=== PATIENT | female | born 1960 | race Caucasian/White ===

== ENCOUNTER 2019-05-13 14:37 | Emergency (ER) | payer OTHER ==
[~2019-05-13] VITALS: Ht 157.5 cm; Wt 62.1 kg
--- NOTE | 2019-05-13 15:08 | NUR ---
Mary lopez in ED - 05/13/19 at 1520 by JEREMIE Patient discharged to home in stable conditon. Written and verbal after care instructions given to patient and adult son. Patient and family verbalized understanding & compliance of instructions.
--- NOTE | 2019-05-13 15:16 | NUR ---
Patient discharged to home in stable conditon with brisk steady gait. Written and verbal after care instructions given to patient and adult son. Patient and family verbalized understanding of instructions.
[2019-05-13] MEDS ORDERED: ONDA8TAB12 PO (15:19)
== END 2019-05-13 15:18 | disposition home or self-care (01) ==
LOC: ER 14:37
DX: B02.9 Zoster without complications (principal)
CPT/HCPCS: A4663

== ENCOUNTER 2019-06-05 20:50 | Emergency (ER) | payer OTHER ==
[~2019-06-05] VITALS: Ht 157.5 cm; Wt 63.5 kg
[~2019-06-05 20:50] MED LIST: ONDA8TAB12 PO
--- NOTE | 2019-06-05 21:00 | NUR ---
Patient BIB SON from home for c/o nausea x3 days. Came in for symtoms not resolving.
[2019-06-05] MEDS ORDERED: METOCLOPRAMIDE HCL 10 MG/2 ML VIAL IM ONE (21:15)
[2019-06-05] MEDS ORDERED: BENZTROPINE MESYLATE 2 MG/2 ML AMPUL IM ONE (21:15)
[2019-06-05] MEDS ORDERED: METOCLOPRAMIDE HCL 10 MG/2 ML VIAL ONE (21:25)
[2019-06-05] MEDS ORDERED: BENZTROPINE MESYLATE 2 MG/2 ML AMPUL ONE (21:25)
[2019-06-05 21:44] LABS: BASOPHILS % (AUTO) 0.1 % (0.0-2.0); HEMATOCRIT 34.8 % (31.2-41.9); HEMOGLOBIN 11.8 g/dL (10.9-14.3); LYMPHOCYTES % (AUTO) 2.4 % (20.5-51.5); MEAN CORPUSCULAR HEMOGLOBIN 32.4 uug (24.7-32.8); MEAN CORPUSCULAR HGB CONC 34 g/dL (32.3-35.6); MONOCYTES # (AUTO) 0.5 K/uL (2.0-10.0); MONOCYTES % (AUTO) 1.3 % (0.0-11.0); NEUTROPHILS # (AUTO) 39.4 K/uL (1.8-8.9); NEUTROPHILS % (AUTO) 96.2 % (38.5-71.5); PLATELET COUNT (AUTO) 256 K/uL (179-408); RED BLOOD CELL COUNT(AUTO) 3.63 MIL/uL (3.63-4.92)
[2019-06-05 21:47] LABS: CREATININE 0.8 mg/dL (0.6-1.3); POTASSIUM 4.1 mmol/L (3.5-5.1)
[2019-06-05 21:53] LABS: BILIRUBIN,DIRECT 0.1 mg/dL (0.0-0.2); BILIRUBIN,TOTAL 0.2 mg/dL (0.2-1.0)
[2019-06-05 22:03] LABS: BAND % (MANUAL) 17 % (0-10); LYMPHOCYTES % (MANUAL) 3 % (20-40); MONOCYTES % (MANUAL) 1 % (2-10); NEUTROPHILS % (MANUAL) 79 % (42-75)
--- NOTE | 2019-06-05 22:45 | NUR ---
Patient states "I feel better. My Nausea is gone."
--- NOTE | 2019-06-05 23:11 | NUR ---
Patient discharged to home in stable conditon with son taking patient home. Written and verbal after care instructions given. Patient/Son verbalizes understanding of instructions. Walked out of ER with no distress noted.
[2019-06-05 23:14] VITALS: BP 110/75
== END 2019-06-05 23:15 | disposition home or self-care (01) ==
LOC: ER 20:53
DX: R11.0 Nausea (principal); D72.829 Elevated white blood cell count, unspecified; G47.00 Insomnia, unspecified; C50.912 Malignant neoplasm of unspecified site of left female breast; Z79.899 Other long term (current) drug therapy
CPT/HCPCS: 36415; 80048; 80076; 83690; 85025; 96372 ×2; 99283; J0515; J2765; A4663